=== PATIENT | female | born 1960 | race Caucasian/White ===

== ENCOUNTER 2023-12-01 06:38 | Inpatient (IN) | payer OTHER, SELFPAY ==
[2023-12-01] VITALS (9 sets, daily range): BP systolic 119–170; BP diastolic 67–105; BMI 35.6; BMI 35.5
--- NOTE | 2023-12-01 02:46 | ED.GENMED ---
History of Present Illness
General
Chief Complaint: Skin Problem
Source: patient, previous radiology exam (Right lower extremity ultrasound November 17, 2023 showing significant reflux right greater saphenous vein and accessory saphenous vein. No evidence of DVT.) and previous hospital records (Previous ED visit
September 23 with complaints of generalized weakness, fatigue, history of vaginal bleeding as well as bleeding of superficial varicosity right lower extremity. Given an IV dose of Venna fair for hemoglobin of 6.2.)
Exam Limitations: none
Time Seen by Provider: 12/01/23 02:23
Nursing documentation reviewed up to this point in time: agreed with
Travel History
Have you had any contact with someone who has COVID-19?: No
Do you have any symptoms of coronavirus? Fever > 100 degrees, chills, cough, shortness of breath, sore throat, loss of taste or smell, muscle aches, or headache?: No
History of Present Illness
History of Present Illness:
This is a 63-year-old woman who has history of left bundle branch block, moderate aortic stenosis, cardiomyopathy with EF approximately 40 to 45%, hypertension, hyperlipidemia. She also has history of chronic venous stasis bilateral lower
extremities right greater than left with onset of medial right lower leg venous stasis ulcerations over the past 6 months.
She does note history of acute varicosity bleeding of right lower extremity August 2023 and was seen in this ED September 23, 2023 due to complaints of lightheadedness, weakness with recent varicose vein bleeding and was found to have a hemoglobin
of 6.2. She was given an IV dose of Venofer during that ED visit. She returns October 02 with complaints of recurrent vaginal bleeding. Hemoglobin on that visit had improved to 6.8.
She has since followed up with hematology and has completed a course of IV Venofer and has been following with wound care with last visit approximately a month ago, she has a follow-up appointment scheduled for December 06.
She has also been following with the vein center of [place] and underwent ultrasound of her right lower leg November 17 which showed significant reflux of varicose veins but no evidence of DVT.
She does note several month history of a large superficial venous ulcer right medial lower leg just proximal to her ankle that has been moderately painful and very slow to heal but she presents tonight due to abrupt onset of redness, pain and
palpable heat of her anteromedial lower leg that has quickly worsened over the past several hours. She denies fever nor chills but has been taking ibuprofen 600 mg several times this evening due to the pain. Thus far no improvement.
No prior history of cellulitis nor focal infections of venous ulcers. She has no history of diabetes, no history of peripheral arterial disease.
Past History
Past History
ED Past Medical History: CHF (Hx SOB, followed by [facility]. Aortic stenosis), GERD, HTN, Hypercholesterolemia, Valvular disease (Moderate aortic stenosis), Hypothyroidism, Other (Bilateral lower extremity venous insufficiency with right lower
extremity venous ulcerations) and Other (Anemia requiring IV iron August/September 2023.)
ED Past Surgical History: Cholecystectomy and
Social History
Tobacco: Former smoker
Alcohol: Occasional
Drug: None
Personal:
Living: with family
Employment: Employed ([employer])
Family History
Family History: CAD and Cancer (sister w colon cancer)
Phy Exam
Physical Exam
Physical Exam:
GENERAL: 63-year-old obese female appears her stated age, awake and alert, pleasant, appears mildly uncomfortable related to pain. Easily communicative. Her is accompanying. She is afebrile.
EYE: anicteric
NECK: Supple, nontender, no meningismus, no significant adenopathy.
ENT: oral mucosa is moist. No rhinorrhea.
CARDIAC: Regular rate and rhythm. no murmur.
LUNGS: Clear breath sounds bilaterally, no acute respiratory distress, no wheezes/rales/rhonchi
ABDOMEN: Soft, nondistended, minimal tenderness epigastric region with deep palpation only, no rebound or guarding or rigidity, no palpable masses. Normoactive bowel sounds.
NEUROLOGICAL: Alert and oriented x3, no focal neuro deficits.
SKIN: Warm and dry, normal color. Right lower medial leg has a 7 cm x 3 cm irregularly shaped venous ulceration, subcutaneous in depth with local soft crust and scant yellowish discharge. Just below this ulcer is a 3 cm circular venous ulcer.
There is moderate erythema extending from this ulcer anteromedially about the lower leg with mild local soft tissue swelling, moderate palpable heat and moderate local tenderness to palpation. There is no lymphangitis. There is no erythema nor
soft tissue swelling to the foot. There is no joint effusion. Peripheral pulses are full and equal bilaterally.
MUSCULOSKELETAL: Venous stasis ulcer right lower extremity as above. Peripheral pulses are full and equal b/l.
PSYCH: Normal and appropriate interaction.
Course
Orders/Labs/Results
Orders:
Orders
12/01/23 02:45
0.9% Sodium Chloride 1000 ml [Nss] 1,000 ml IV 150 mls/hr
Morphine Sulfate 4 mg IV NOW STA
12/01/23 02:52
Complete Blood Count/With Diff Urgent
Comprehensive Metabolic Panel Urgent
Lactic Acid Urgent
Blood Culture Q30M
JADYN Source: Blood/Venous
Specimen Description:
12/01/23 02:56
Blood Culture Q30M
JADYN Source: Blood/Venous
Specimen Description:
Wound Culture [Wound/Abscess/Other Culture] Urgent
JADYN Source: Leg
Specimen Description: Right
Date Specimen was Collected: 12/01/23
Time Specimen was Collected: 02:54
Comment: venous stasis ulcer R medial lower leg
12/01/23 03:05
Pantoprazole [Protonix IV] 40 mg IV NOW STA
12/01/23 03:09
Collagenase [Santyl Ointment] See Dose Instructions TOPICAL NOW STA
12/01/23 03:11
CeFAZolin 2 GRAM [Ancef] 2 grams in 10 ml IV NOW
Abnormal Lab Results
12/01/23
02:52
RBC 4.09 L 10^6/uL
(4.20-5.40)
MCHC 32.9 L g/dL
(33.0-37.0)
RDW 17.1 H %
(11.5-14.5)
Potassium 5.3 H mmol/L
(3.5-5.1)
AST 40 H U/L
(14-36)
12/01/23 02:52
12/01/23 02:52
Vital Signs
Initial and Last Documented VS:
Initial Vital Signs
Temp Pulse Resp BP Pulse Ox
97.7 F 68 17 142/89 97
12/01/23 02:07 12/01/23 02:07 12/01/23 02:07 12/01/23 02:07 12/01/23 02:07
Last Documented Vital Signs
Temp Pulse Resp BP Pulse Ox
97.7 F 68 17 142/89 97
12/01/23 02:07 12/01/23 02:07 12/01/23 02:07 12/01/23 02:07 12/01/23 02:07
MDM/Problems Addressed
Differential Diagnosis Includes:
Patient has history of venous stasis ulcerations right lower extremity, presents with acute erythema, pain, swelling and palpable heat about her right lower leg extending from this ulcer quite concerning for acute cellulitis.
Currently afebrile but patient has been self-medicating with a fair amount of ibuprofen this evening. She does admit to some epigastric discomfort that I suspect is acute gastritis related to several doses of ibuprofen 600 mg this evening.
Venous stasis ulcerations have been present for the past 6 months, very slow to heal thus concern for an element of immunocompromise. There is no history of arterial insufficiency and no history of DVT/thromboembolism and underwent venous
Doppler/imaging most recently November 17.
She has history of symptomatic anemia due to bleeding of superficial varicose veins as well as postmenopausal bleeding requiring IV iron transfusions August and September. She has had no further bleeding since.
Will check labs including lactic acid, blood cultures, CBC, complete metabolic panel.
Will check wound culture. Patient reports no prior history of MRSA.
Will give IV morphine for pain, initiate IV fluids and will plan for IV antibiotics for treatment of acute cellulitis.
Due to acute onset and progression of erythema and pain over the past several hours patient is at risk for further progression, at risk for potential sepsis thus will require IV antibiotics and acute hospitalization.
Chronic conditions affecting care: HTN and Other (Venous stasis ulcerations right lower extremity, chronic venous stasis bilateral lower extremities.)
Acute Exacerbation and/or Progression of Chronic Illness: Other (Venous stasis ulcerations right lower extremity)
*Pulse Oximetry
Patient hypoxic: no
*Critical Care Note
Total Time (30-74mins, 75-104mins- exclusive of procedures): Not Applicable
Update Note
Update Note:
12/01/2023 0409 AM
Labs are reassuring with normal white blood cell count, chemistries show minimally elevated potassium of 5.3 but normal BUN and creatinine, normal lactic acid.
Patient is mildly more comfortable after IV morphine.
She has been started on IV Ancef and will admit to hospitalist service.
ED Attending Note
-
Portions of this chart may have been created with voice recognition software.� Occasional wrong word or��sound alike� substitutions may have occurred due to the inherent limitations of voice recognition software.
Discharge Plan
Departure
Patient Disposition: Admit
Date of Disposition: 12/01/23
Time of Disposition: 04:08
Admit to: Med/Surg
Admit to doctor: Jay Jay
Presentation/result/management discussed w/ accepting MD/DO: Hospitalist
Condition: Fair
Discharge Problem:
Venous stasis ulcer with varicose veins of right lower extremity, Cellulitis of leg without foot, right
Prescriptions:
No Action
levothyroxine 125 MCG tablet
150 mcg PO DAILY
acetaminophen [Tylenol Extra Strength] 500 MG tablet
500 mg PO Q4HPRN PRN (Reason: pain)
omeprazole 20 MG capsule,delayed release(DR/EC)
40 mg PO DAILY
aspirin [Mile Chewable Aspirin] 81 MG tablet,chewable
81 mg PO DAILY
ferrous sulfate [Iron (ferrous sulfate)] 325 mg (65 mg iron) tablet
325 mg PO DAILY Qty: 20 0RF
cyanocobalamin (vitamin B-12) [Vitamin B-12] 1,000 mcg Tablet
1,000 mcg PO DAILY
metoprolol tartrate 25 mg Tablet
25 mg PO HS
cholecalciferol (vitamin D3) [Vitamin D3] 25 mcg (1,000 unit) Tablet
25 mcg PO DAILY
Entresto 49-51 mg Tablet
1 tab PO BID
Linzess 72 mcg Capsule
145 mcg PO DAILY
spironolactone 25 mg Tablet
25 mg PO DAILY
Interventions
Interventions:
*Risk Screen - Suicide Last Done: 12/01/23 02:07
*General Assessment Last Done: 12/01/23 02:07
*Neglect/Abuse Screening Last Done: 12/01/23 02:07
ED- Fall Risk Assessment Last Done: 12/01/23 02:07
*ED COVID-19 Vaccine History Last Done: 12/01/23 02:07
ED-Skin Assessment Last Done: 12/01/23 03:49
[2023-12-01] MEDS: MORPHINE SULFATE 4 MG IV (02:54)
[2023-12-01] MEDS: NSS 1000 IV (02:55)
[2023-12-01] MEDS: PROTONIX IV 40 MG IV (03:09)
[2023-12-01] MEDS: SANTYL OINTMENT TOPICAL (03:10)
[2023-12-01] MEDS: SANTYL OINTMENT 1 APPLIC TOPICAL (03:27)
[2023-12-01] MEDS: ANCEF 10 IV ×3 (03:27→20:09)
[2023-12-01 03:34] LABS: % Basophils 1.1 % (0-2); % Eosinophils 5.6 % (0-6); % Immature Granulocytes 0.3 % (0-0.5); % Lymphocytes 22.5 % (20.5-51.1); % Monocytes 8.9 % (1.7-9.3); % Neutrophils 61.6 % (42.2-75.2); Absolute Basophils 0.1 10^3/uL (0-0.2); Absolute Eosinophils 0.4 10^3/uL (0-0.7); Absolute Lymphocytes 1.4 10^3/uL (1.2-3.4); Absolute Monocytes 0.6 10^3/uL (0.1-0.6); Absolute Neutrophils 3.9 10^3/uL (1.4-6.5); Hematocrit 38.3 % (37.0-47.0); Hemoglobin 12.6 g/dL (12.0-16.0); Mean Corp Hgb Conc. 32.9 g/dL (33.0-37.0); Mean Corpuscular Hgb 30.8 pg (27.0-31.0); Mean Corpuscular Volume 93.6 fL (81.0-99.0); Nucleated Red Blood Cells % 0 %; Platelet Count 240 10^3/uL (130-400); Red Blood Cell Count 4.09 10^6/uL (4.20-5.40); Red Cell Dist. Width 17.1 % (11.5-14.5); White Blood Cell Count 6.3 10^3/uL (4.8-10.8)
[2023-12-01 03:42] LABS: Lactic Acid 0.7 mmol/L (0.7-2.0)
[2023-12-01 04:00] LABS: ALT (SGPT) 19 U/L (0-35); AST (SGOT) 40 U/L (14-36); Albumin 3.8 g/dl (3.5-5.0); Alkaline Phosphatase 87 U/L (38-126); Blood Urea Nitrogen 13 mg/dl (7-17); Carbon Dioxide 25 mmol/L (22-30); Chloride 105 mmol/L (98-107); Glucose 97 mg/dl (70-99); Potassium 5.3 mmol/L (3.5-5.1); Sodium 137 mmol/L (135-145); Total Bilirubin 1.3 mg/dl (0.2-1.3); Total Protein 6.6 g/dl (6.3-8.2); eGFR > 60.00
--- NOTE | 2023-12-01 06:05 | HPS.HSE ---
Family Physician
-
Family Physician: Eriberto Ward
Chief Complaint
-
RLE Pain swelling and redness
History of Present Illness
Patient is a 63y F with PMH significant for hypothyroidism, aortic stenosis, obesity and venous ulcers who presents to ED complaining of pain, swelling, redness and increased warmth in the RLE. Patient reports development of venous ulcers near
the R ankle in August 2023. She has been evaluated / followed by Wound Care here at . Patient states that she was having no significant issues until bedtime this evening when she noted significant redness, swelling and significant increase in
warmth in the R lower leg. Patient presented to the ED for further evaluation and treatment. She denies any systemic complaints including fevers / chills, N/V/D, etc.
Medical History
Past Medical History
Past Medical History: Reports Other
Additional Past Medical History:
Venous Stasis / Ulcerations / Varicose Veins
Hypertension
Aortic Stenosis
Chronic HFrEF (35-40%)
LBBB
Obesity
Hypothyroidism
GERD / Juan's Esophagus
Past Surgical History: Reports Other
Additional Past Surgical History:
x 4
Cholecystectomy
Social History
Tobacco: Former Smoker (Quit smoking many years ago.)
Alcohol: Occasional
Drug: None
Family History
Family History: Other (Father: CAD, Lung Cancer Mother: Dementia Daughter: Crohn's disease)
Allergies / Home Medications
Allergies reflects when Allergies were last updated in [employer].
Home Medications with original date entered in [employer]
Allergy/Medication List:
Allergies
Allergy/AdvReac Type Severity Reaction Status Date / Time
No Known Allergies Allergy Verified 12/01/23 02:06
Home Medications
levothyroxine 125 mcg tablet 150 mcg PO DAILY 09/18/11
acetaminophen 500 mg tablet (Tylenol Extra Strength) 500 mg PO Q4HPRN PRN pain 02/21/18
aspirin 81 mg chewable tablet (Mile Chewable Low Dose Aspirin) 81 mg PO DAILY 12/21/17
omeprazole 20 mg capsule,delayed release 40 mg PO DAILY 12/21/17
ferrous sulfate 325 mg (65 mg iron) tablet (Iron (ferrous sulfate)) 325 mg PO DAILY #20 tabs 09/23/23
cholecalciferol (vitamin D3) 25 mcg (1,000 unit) tablet (Vitamin D3) 25 mcg PO DAILY 10/02/23
cyanocobalamin (vitamin B-12) 1,000 mcg tablet (Vitamin B-12) 1,000 mcg PO DAILY 10/02/23
linaclotide 72 mcg capsule (Linzess) 145 mcg PO DAILY 10/02/23
metoprolol tartrate 25 mg tablet 25 mg PO HS 10/02/23
sacubitril 49 mg-valsartan 51 mg tablet (Entresto) 1 tab PO BID 10/02/23
spironolactone 25 mg tablet 12.5 mg PO DAILY 10/10/23
Review of Systems
-
History Source: Patient
A 12 point ROS was completed and negative except as noted: Yes
Constitutional: Denies Fever or Chills
EENT: Denies Sore Throat
Respiratory: Denies Cough or Trouble Breathing
Cardiac: Denies Chest Pain or Palpitations
Abdomen/GI: Denies Abdominal Pain, Nausea, Vomiting or Diarrhea
: Denies Dysuria or Frequency
Musculoskeletal: Reports Joint Pain, Muscle Pain and Edema
Skin: Reports Other (Redness / warmth)
Psych: Denies Depression or Anxiety
Physical Exam
Vital Signs
Vital Signs
Temp Pulse Resp BP Pulse Ox
97.7 F 68 17 142/89 97
12/01/23 02:07 12/01/23 02:07 12/01/23 02:07 12/01/23 02:07 12/01/23 02:07
Physical Exam
General: Other (63y F in no acute distress.)
HEENT: Moist mucous membranes, PERRLA and Other (Thick neck.)
Respiratory: Clear; No Wheezes, Rales or Rhonchi
Cardiac: S1/S2, Regular Rhythm and Murmur (II/ IOANA)
GI: Soft, Non Tender, Non Distended, Normal Bowel Sounds and Other (Obese)
Musculoskeletal: No Clubbing and No Cyanosis
Skin: Other (RLE with erythema extending just distal to the knee. Ulceration over the medial aspect of the ankle with surrounding erythema, induration and some serous drainage. )
Neuro: AO x 3
Laboratory Results
-
12/01/23 02:52
12/01/23 02:52
Laboratory Results
Lactic Acid 0.7 mmol/L (0.7-2.0) 12/01/23 02:52
Total Bilirubin 1.3 mg/dl (0.2-1.3) 12/01/23 02:52
AST 40 U/L (14-36) H 12/01/23 02:52
ALT 19 U/L (0-35) 12/01/23 02:52
Alkaline Phosphatase 87 U/L (38-126) 12/01/23 02:52
Impression/Plan
-
A/P: Patient is a 63y F with PMH significant for venous stasis / venous ulcers, CHF and HTN who presents to ED complaining of RLE pain, swelling, redness and warmth.
RLE Cellulitis
- Admit for further evaluation and treatment.
- Cellulitis seems most likely given erythema, increased warmth and presence of ulcerations / skin breakdown.
- IV abx with Ancef and follow for clinical improvement.
- Follow-up culture data and adjust regimen if needed.
- Supportive care including pain control.
- Given risk factors and sudden onset of symptoms, shahida check Doppler US to rule out DVT (last checked / negative in 08/2023).
Venous Stasis Varicose Veins
Venous Ulcers RLE
- Wound Care evaluation for local care recommendations.
- Follow-up with Wound Care clinic as an outpatient following discharge.
Chronic HFrEF
Aortic Stenosis
- Stable. No significant volume overload appreciated on exam.
- Hold Entresto and spironolactone acutely given hyperkalemia.
- Restart medications when appropriate.
- Follow I/Os, daily weights, etc.
Benign Hypertension
- Stable. Continue outpatient med regimen with holding parameters.
GERD / Juan's Esophagus
- Stable. Continue daily PPI.
- Patient also self-reports that she has Crohn's disease. I see no record of this in her documentation.
- Not on any Crohn's medications. Prior colonoscopy biopsy results have been unremarkable.
- She takes Linzess for constipation predominant IBS which seems incongruous.
- Follow for any new GI symptoms / complaints.
Hypothyroidism
- Stable. Continue current t4 supplementation.
Obesity due to excess calories
- Affects all aspects of care - including varicose veins / venous stasis.
- Encourage healthy diet and increased exercise with goal of weight loss.
DVT Propphylaxis: Lovenox
Code Status: Full
--- NOTE | 2023-12-01 08:31 | W.PN.HOSP.TC ---
Today's Communication/Plan
-
IV antibiotics, PT eval. Wound care eval
Assessment / Plan
Assessment / Plan
Physical exam:
General: Well Developed, Well Nourished and No Apparent Distress
HEENT: Normocephalic, Atraumatic and Moist Mucous Membranes
Respiratory: Clear to Auscultation; Negative Wheezes, Rales or Rhonchi
Cardiac: Regular Rhythm and S1/S2
GI: Soft, Nontender and Nondistended
Musculoskeletal: RLE with erythema extending just distal to the knee.� Ulceration over the medial aspect of the ankle with surrounding erythema, induration and some serous drainage.� No Clubbing, No Cyanosis
Neuro: Awake, Alert and Oriented
Psych: Calm
A/P:
RLE Cellulitis
�- Admit for further evaluation and treatment.
�- Cellulitis seems most likely given erythema, increased warmth and presence of ulcerations / skin breakdown.
�- IV abx with Ancef and follow for clinical improvement.
�- Follow-up culture data and adjust regimen if needed.
�- Supportive care including pain control.
�- Checked Doppler US negative for DVT
-PT eval today
Venous Stasis Varicose Veins
Venous Ulcers RLE
�- Wound Care evaluation for local care recommendations. Start compression stockings today. Elevation of right lower extremity
�- Follow-up with Wound Care clinic as an outpatient following discharge.
Chronic HFrEF
Aortic Stenosis. Hyperkalemia
�- Stable.� No significant volume overload appreciated on exam.
�- Hold Entresto and spironolactone acutely given hyperkalemia. Repeat again tomorrow and if persistent will use Lokelma but hold off for now.
�- Restart medications when appropriate.
�- Follow I/Os, daily weights, etc.
Benign Hypertension
�- Stable.� Continue outpatient med regimen with holding parameters.
GERD / Juan's Esophagus
�- Stable.� Continue daily PPI.
�- Patient also self-reports that she has Crohn's disease.� I see no record of this in her documentation.
�- Not on any Crohn's medications.� Prior colonoscopy biopsy results have been unremarkable.
�- She takes Linzess for constipation predominant IBS which seems incongruous.
�- Follow for any new GI symptoms / complaints.
Hypothyroidism
�- Stable.� Continue current t4 supplementation.
Obesity due to excess calories
�- Affects all aspects of care - including varicose veins / venous stasis.
�- Encourage healthy diet and increased exercise with goal of weight loss.
DVT Propphylaxis:� Lovenox
Code Status:� Full
Anticipated Discharge: > 48 hours
Subjective/Interval History
-
Date of Service: December 01, 2023
Patient with erythema in right lower extremity and medial ulcers on the right leg, no chest pain or shortness of breath. Afebrile
Objective Data
-
Labs:
Laboratory Results
12/01/23
02:52
WBC 6.3
Hgb 12.6
Hct 38.3
Plt Count 240
Sodium 137
Potassium 5.3 H
Chloride 105
Carbon Dioxide 25
BUN 13
Creatinine 0.6
Glucose 97
Calcium 9.0
Total Bilirubin 1.3
AST 40 H
ALT 19
Alkaline Phosphatase 87
Vital Signs:
Vital Signs
Temp Pulse Resp BP Pulse Ox
97.7 F 68 17 147/86 97
12/01/23 02:07 12/01/23 02:07 12/01/23 02:07 12/01/23 06:00 12/01/23 02:07
Review of Systems
-
All other systems: Reviewed and negative
[2023-12-01] MEDS: LOW STRENGTH ASPIRIN PO (09:19)
[2023-12-01] MEDS: LINZESS 145 MCG PO (09:23)
[2023-12-01] MEDS: FEOSOL 325 MG PO (09:23)
[2023-12-01] MEDS: DILAUDID 0.5 MG IV ×2 (09:26→16:01)
--- NOTE | 2023-12-01 11:08 | WOUNDNOTE ---
[facility] RN note: Patient admitted with RLE wound and cellulitis
See H&P for complete history.
PMH: A-fib, CHF, HTN, Juan's esophagus
Wound Location and type/assessment: Patient admitted with: RLE venous wound. Patient last seen at [facility] on 10/25. Patient now with erythema and +2 edema of right LE. Wound is tender, dry, with areas of slough. Patient can detect odor after
washing. She has been cleaning and applying aquaphor to wound daily. Per chart review and patient report she did not want wound to be debrided due to pain. 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
pastry sous chef.
Appetite: Good
Pressure redistribution devices in place: Versa Care Air, turns in bed and ambulates. Heels and sacrum intact.
Plan: Wound cleaned with Vashe soaked gauze for 5 minutes and Xeroform and silicone foam applied. Tubi-second worker to RLE has been ordered and is in room. Patient will allow staff to apply tubi second worker when leg is less tender. Patient has an appointment at
[facility] on 12/06. Will confirm orders with hospitalist and update nurse. Updated care plan and will follow as needed.
Recommend follow up at wound care center upon discharge.
[2023-12-01] MEDS: MIRALAX 17 GRAMS PO (12:38)
[2023-12-01] MEDS: TYLENOL 650 MG PO (12:43)
--- NOTE | 2023-12-01 15:45 | CM ---
Reviewed chart, met with patient to obtain information for assessment. Patient stated that she lives in a two story town home with two steps to enter.
She described herself as independent with all her ADLs, personal care, dressing, bathing and ambulates without use of an assistive device.
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
She denied any DME in her home. She has never been to a SNF or had VN. She is going to outpatient wound care.
Patient has a prescription plan and uses the [facility] pharmacy for all of his medications.
She has a PCP and sees Dr. Hodges.
Plan: Case management will continue to follow and assist with discharge planning. Home with spouse when stable.
--- NOTE | 2023-12-01 16:25 | PTOTSP ---
Pt is functionally independent. PT will sign off.
[2023-12-01] MEDS: LOVENOX 40 MG SC (19:32)
[2023-12-01] MEDS: LOPRESSOR 25 MG PO (21:29)
[2023-12-02] MEDS: DILAUDID 0.5 MG IV (00:48)
[2023-12-02] MEDS: ANCEF 10 IV ×3 (03:55→19:54)
[2023-12-02 06:54] LABS: Hematocrit 38.3 % (37.0-47.0); Hemoglobin 12.1 g/dL (12.0-16.0); Mean Corp Hgb Conc. 31.6 g/dL (33.0-37.0); Mean Corpuscular Hgb 31.3 pg (27.0-31.0); Mean Corpuscular Volume 99.2 fL (81.0-99.0); Mean Platelet Volume 9.9 fL (7.4-10.4); Platelet Count 183 10^3/uL (130-400); Red Blood Cell Count 3.86 10^6/uL (4.20-5.40); Red Cell Dist. Width 17.1 % (11.5-14.5); White Blood Cell Count 4.8 10^3/uL (4.8-10.8)
[2023-12-02 07:19] LABS: Blood Urea Nitrogen 17 mg/dl (7-17); Calcium 8.8 mg/dl (8.4-10.2); Carbon Dioxide 26 mmol/L (22-30); Chloride 105 mmol/L (98-107); Estimated Creatinine Clearance 97 ml/min; Glucose 96 mg/dl (70-99); Sodium 139 mmol/L (135-145); eGFR > 60.00
[2023-12-02 07:30] VITALS: BP 166/95
[2023-12-02] MEDS: LINZESS 145 MCG PO (08:21)
[2023-12-02] MEDS: SYNTHROID 125 MCG PO (08:21)
--- NOTE | 2023-12-02 08:56 | W.PN.HOSP.TC ---
Today's Communication/Plan
-
Continue IV antibiotics. Resume antihypertensives.
Assessment / Plan
Assessment / Plan
Physical exam:
General: Well Developed, Well Nourished and No Apparent Distress
HEENT: Normocephalic, Atraumatic and Moist Mucous Membranes
Respiratory: Clear to Auscultation; Negative Wheezes, Rales or Rhonchi
Cardiac: Regular Rhythm and S1/S2
GI: Soft, Nontender and Nondistended
Musculoskeletal: RLE with erythema extending just distal to the knee.� Ulceration over the medial aspect of the ankle with surrounding erythema, induration and some serous drainage.� No Clubbing, No Cyanosis
Neuro: Awake, Alert and Oriented
Psych: Calm
A/P:
RLE Cellulitis
�- Admit for further evaluation and treatment.
�- Cellulitis seems most likely given erythema, increased warmth and presence of ulcerations / skin breakdown.
�- IV abx with Ancef and follow for clinical improvement.
�- Follow-up culture data and adjust regimen if needed.
�- Supportive care including pain control.
�- Checked Doppler US negative for DVT
-PT eval today
Venous Stasis Varicose Veins
Venous Ulcers RLE
�- Wound Care evaluation for local care recommendations. Start compression stockings today. Elevation of right lower extremity
�- Follow-up with Wound Care clinic as an outpatient following discharge.
Chronic HFrEF
Aortic Stenosis. Hyperkalemia, resolved.
�- Stable.� No significant volume overload appreciated on exam.
�-Resume Entresto and spironolactone given potassium normalized her blood pressure starts to go up.
�- Follow I/Os, daily weights, etc.
Benign Hypertension
�- Continue outpatient med regimen with holding parameters.
�-Resume Entresto and spironolactone given potassium normalized her blood pressure starts to go up.
GERD / Juan's Esophagus
�- Stable.� Continue daily PPI.
�- Patient also self-reports that she has Crohn's disease.� I see no record of this in her documentation.
�- Not on any Crohn's medications.� Prior colonoscopy biopsy results have been unremarkable.
�- She takes Linzess for constipation predominant IBS which seems incongruous.
�- Follow for any new GI symptoms / complaints.
Hypothyroidism
�- Stable.� Continue current t4 supplementation.
Obesity due to excess calories
�- Affects all aspects of care - including varicose veins / venous stasis.
�- Encourage healthy diet and increased exercise with goal of weight loss.
DVT Propphylaxis:� Lovenox
Code Status:� Full
Anticipated Discharge: 24 - 48 hours
Subjective/Interval History
-
Date of Service: December 02, 2023
Erythema is better. Blood pressure started to go up
Objective Data
-
Labs:
Laboratory Results
12/02/23
06:22
WBC 4.8
Hgb 12.1
Hct 38.3
Plt Count 183 D
Sodium 139
Potassium 4.0
Chloride 105
Carbon Dioxide 26
BUN 17
Creatinine 0.7
Glucose 96
Calcium 8.8
Vital Signs:
Vital Signs
Temp Pulse Resp BP Pulse Ox
97.6 F 75 18 166/95 96
12/02/23 07:30 12/02/23 07:30 12/02/23 07:30 12/02/23 07:30 12/02/23 07:30
I&O
12/01/23 12/02/23 12/03/23
06:59 06:59 06:59
Intake Total 1380 / 1380
Balance 1380 / 1380
[2023-12-02] MEDS: PROTONIX 40 MG PO (09:44)
[2023-12-02] MEDS: ALDACTONE 12.5 MG PO (09:44)
[2023-12-02] MEDS: LOW STRENGTH ASPIRIN 81 MG PO (09:44)
[2023-12-02] MEDS: MIRALAX PO ×2 (09:44→09:49)
[2023-12-02] MEDS: ENTRESTO 49 MG/51 MG 1 TAB PO ×2 (09:45→19:54)
[2023-12-02 10:00] VITALS: BMI 35.6
[2023-12-02 15:30] VITALS: BP 154/91
[2023-12-02] MEDS: LOVENOX 40 MG SC (16:58)
[2023-12-02] MEDS: TYLENOL 650 MG PO (17:58)
[2023-12-02] MEDS: TOPROL XL 25 MG PO (22:02)
[2023-12-02 23:31] VITALS: BP 144/70
[2023-12-03] MEDS: TYLENOL 650 MG PO ×3 (02:33→17:27)
[2023-12-03] MEDS: ANCEF 10 IV ×3 (04:00→20:01)
[2023-12-03] MEDS: SYNTHROID 125 MCG PO (06:28)
[2023-12-03 07:25] VITALS: BP 156/94
--- NOTE | 2023-12-03 07:47 | W.PN.HOSP.TC ---
Today's Communication/Plan
-
Continue IV antibiotics. Resume all her cardiac medications.
Assessment / Plan
Assessment / Plan
Physical exam:
General: Well Developed, Well Nourished and No Apparent Distress
HEENT: Normocephalic, Atraumatic and Moist Mucous Membranes
Respiratory: Clear to Auscultation; Negative Wheezes, Rales or Rhonchi
Cardiac: Regular Rhythm and S1/S2
GI: Soft, Nontender and Nondistended
Musculoskeletal: RLE with erythema extending just distal to the knee, improving.� Ulceration over the medial aspect of the ankle with surrounding erythema, induration and some serous drainage.� No Clubbing, No Cyanosis
Neuro: Awake, Alert and Oriented
Psych: Calm
A/P:
RLE Cellulitis:
�-Continue IV antibiotics, IV cefazolin. She still needs 24 to 48 hours of IV antibiotics.
-Cultures negative
-Continue elevation of lower extremity
-Continue compression stockings
-Doppler negative for DVT
-PT eval and they signed off
Venous Stasis Varicose Veins/ Venous Ulcers RLE:
-Appreciated wound care consult
Chronic HFrEF (chronic systolic congestive heart failure)/ Aortic Stenosis:
�- Stable.�
-After discussion with patient and , they tell me that she is supposed to be taking furosemide 40 mg daily so we will restart today 2/3. He will verify the medications at home to confirm.
�-Continue Entresto and spironolactone
�- Follow I/Os, daily weights.
-Will check renal function, electrolytes including potassium, magnesium, phosphorus. She is very concerned about phosphorus so we will check in a.m. but also she is concerned about renal function but creatinine 0.7 with a creatinine clearance of
more than 60.
Hyperkalemia:
-Resolved.
-Back on spironolactone and Entresto, although initial presentation probably mild dehydration rather than medications induced.
Primary hypertension:
�- Continue Toprol-XL 25 mg daily, spironolactone 12.5 mg p.o. daily, Entresto 49/51 mg twice a day, and furosemide 40 mg p.o. daily.
-Monitor blood pressure and adjust medications accordingly
GERD / Juan's Esophagus:
�- Stable.� Continue daily PPI.
�- Patient also self-reports that she has Crohn's disease.� I see no record of this in her documentation.
�- Not on any Crohn's medications.� Prior colonoscopy biopsy results have been unremarkable.
�- She takes Linzess for constipation predominant IBS which seems incongruous.
�- Follow for any new GI symptoms / complaints.
Hypothyroidism:
�- Stable.� Continue current t4 supplementation.
Obesity due to excess calories:
�- Affects all aspects of care - including varicose veins / venous stasis.
�- Encourage healthy diet and increased exercise with goal of weight loss.
DVT Propphylaxis:�
-Lovenox
Code Status:�
-Full
Anticipated Discharge: 24 - 48 hours
Subjective/Interval History
-
Date of Service: December 03, 2023
Patient erythema improving as well as swelling, no fevers nausea vomiting or diarrhea. No chest pain or shortness of breath.
Objective Data
-
Labs:
Laboratory Results
12/03/23
06:13
WBC Pending
Hgb Pending
Hct Pending
Plt Count Pending
Sodium Pending
Potassium Pending
Chloride Pending
Carbon Dioxide Pending
BUN Pending
Creatinine Pending
Glucose Pending
Calcium Pending
Vital Signs:
Vital Signs
Temp Pulse Resp BP Pulse Ox
97.9 F 67 20 144/70 93
12/02/23 23:31 12/02/23 23:31 12/02/23 23:31 12/02/23 23:31 12/02/23 23:31
I&O
12/02/23 12/03/23 12/04/23
06:59 06:59 06:59
Intake Total 1380 / 1380 960 / 960
Balance 1380 / 1380 960 / 960
Review of Systems
-
All other systems: Reviewed and negative
[2023-12-03 08:19] VITALS: BMI 35.1
[2023-12-03 08:23] LABS: % Basophils 0.8 % (0-2); % Eosinophils 3.8 % (0-6); % Immature Granulocytes 0.4 % (0-0.5); % Lymphocytes 22.6 % (20.5-51.1); % Monocytes 8.4 % (1.7-9.3); Absolute Eosinophils 0.2 10^3/uL (0-0.7); Absolute Lymphocytes 1.2 10^3/uL (1.2-3.4); Absolute Monocytes 0.4 10^3/uL (0.1-0.6); Absolute Neutrophils 3.4 10^3/uL (1.4-6.5); Hematocrit 39.4 % (37.0-47.0); Hemoglobin 12.7 g/dL (12.0-16.0); Mean Corp Hgb Conc. 32.2 g/dL (33.0-37.0); Mean Corpuscular Hgb 31.1 pg (27.0-31.0); Mean Corpuscular Volume 96.3 fL (81.0-99.0); Mean Platelet Volume 10.2 fL (7.4-10.4); Nucleated Red Blood Cells % 0 %; Platelet Count 216 10^3/uL (130-400); Red Blood Cell Count 4.09 10^6/uL (4.20-5.40); Red Cell Dist. Width 16.9 % (11.5-14.5); White Blood Cell Count 5.2 10^3/uL (4.8-10.8)
[2023-12-03 09:08] LABS: Blood Urea Nitrogen 16 mg/dl (7-17); Calcium 8.9 mg/dl (8.4-10.2); Carbon Dioxide 28 mmol/L (22-30); Chloride 103 mmol/L (98-107); Estimated Creatinine Clearance 97 ml/min; Glucose 93 mg/dl (70-99); Potassium 3.9 mmol/L (3.5-5.1); Sodium 138 mmol/L (135-145); eGFR > 60.00
[2023-12-03] MEDS: ALDACTONE 12.5 MG PO (09:55)
[2023-12-03] MEDS: ENTRESTO 49 MG/51 MG 1 TAB PO ×2 (09:55→20:01)
[2023-12-03] MEDS: LOW STRENGTH ASPIRIN 81 MG PO (09:55)
[2023-12-03] MEDS: MIRALAX 17 GRAMS PO (09:56)
[2023-12-03] MEDS: PROTONIX 40 MG PO ×2 (09:56)
[2023-12-03] MEDS: LINZESS 145 MCG PO (10:04)
[2023-12-03] MEDS: LASIX 40 MG PO (11:12)
--- NOTE | 2023-12-03 13:09 | PTCARENOTE ---
PT with many questions about her medications, potassium, venous ulcer and wound care. Pt received education about entresto, spironolactone, lasix, daily labs. PT Verbalized an understanding. Room moved by charge nurse. Pt is not on precautions
at the time of decision making. Wound cultures just appeared with pseudomonas and staph. Pt on ancef. will await final cultures. PT ambulating in hallways without any difficulty
[2023-12-03 15:00] VITALS: BP 144/83
[2023-12-03] MEDS: LOVENOX 40 MG SC (17:22)
[2023-12-03] MEDS: FLUSH (NSS) 1 FLUSH IV (20:14)
[2023-12-03] MEDS: MOTRIN 400 MG PO (20:14)
[2023-12-03] MEDS: TOPROL XL 25 MG PO (21:30)
[2023-12-03 23:40] VITALS: BP 130/72
[2023-12-04] MEDS: ANCEF 10 IV ×3 (04:51→20:50)
[2023-12-04 06:00] VITALS: BMI 35.3
[2023-12-04 07:00] VITALS: BP 119/66
[2023-12-04] MEDS: SYNTHROID 125 MCG PO (07:09)
[2023-12-04 08:04] LABS: Blood Urea Nitrogen 21 mg/dl (7-17); Calcium 9.1 mg/dl (8.4-10.2); Carbon Dioxide 28 mmol/L (22-30); Chloride 102 mmol/L (98-107); Estimated Creatinine Clearance 97 ml/min; Glucose 98 mg/dl (70-99); Sodium 137 mmol/L (135-145); eGFR > 60.00
[2023-12-04] MEDS: MIRALAX PO (08:21)
[2023-12-04] MEDS: LINZESS 145 MCG PO (08:21)
[2023-12-04] MEDS: ALDACTONE 12.5 MG PO (08:22)
[2023-12-04] MEDS: PROTONIX 40 MG PO (08:22)
[2023-12-04] MEDS: ENTRESTO 49 MG/51 MG 1 TAB PO ×2 (08:22→21:07)
[2023-12-04] MEDS: LASIX 40 MG PO (08:22)
[2023-12-04] MEDS: LOW STRENGTH ASPIRIN 81 MG PO (08:22)
[2023-12-04] MEDS: TYLENOL 650 MG PO ×2 (08:25→16:57)
--- NOTE | 2023-12-04 08:26 | W.PN.HOSP.TC ---
Today's Communication/Plan
-
Continue antibiotics. Discharge planning in progress.
Assessment / Plan
Assessment / Plan
Physical exam:
General: Well Developed, Well Nourished and No Apparent Distress
HEENT: Normocephalic, Atraumatic and Moist Mucous Membranes
Respiratory: Clear to Auscultation; Negative Wheezes, Rales or Rhonchi
Cardiac: Regular Rhythm and S1/S2
GI: Soft, Nontender and Nondistended
Musculoskeletal: RLE with erythema extending just distal to the knee, improving.� Ulceration over the medial aspect of the ankle with surrounding erythema, induration and some serous drainage.� No Clubbing, No Cyanosis
Neuro: Awake, Alert and Oriented
Psych: Calm
A/P:
RLE Cellulitis:
�-Continue IV antibiotics, IV cefazolin. She still needs 24 hours of IV antibiotics and will switch to oral antibiotics tomorrow.
-Cultures negative
-Continue elevation of lower extremity
-Continue compression stockings
-Doppler negative for DVT
-PT eval and they signed off
Venous Stasis Varicose Veins/ Venous Ulcers RLE:
-Appreciated wound care consult
Chronic HFrEF (chronic systolic congestive heart failure)/ Aortic Stenosis:
�- Stable.�
-After discussion with patient and , they tell me that she is supposed to be taking furosemide 40 mg daily so we will restart today 12/03. He will verify the medications at home to confirm.
�-Continue Entresto and spironolactone
�- Follow I/Os, daily weights.
-Will check renal function, electrolytes including potassium, magnesium, phosphorus. She is very concerned about phosphorus so we will check in a.m. but also she is concerned about renal function but creatinine 0.7 with a creatinine clearance of
more than 60. I checked her magnesium, calcium, phosphorus, renal function again today on 12/04 and they are all unremarkable even taking her diuretics.
Hyperkalemia:
-Resolved.
-Back on spironolactone and Entresto, although initial presentation probably mild dehydration rather than medications induced.
Primary hypertension:
�- Continue Toprol-XL 25 mg daily, spironolactone 12.5 mg p.o. daily, Entresto 49/51 mg twice a day, and furosemide 40 mg p.o. daily.
-Monitor blood pressure and adjust medications accordingly
GERD / Juan's Esophagus:
�- Stable.� Continue daily PPI.
�- Patient also self-reports that she has Crohn's disease.� I see no record of this in her documentation.
�- Not on any Crohn's medications.� Prior colonoscopy biopsy results have been unremarkable.
�- She takes Linzess for constipation predominant IBS which seems incongruous.
�- Follow for any new GI symptoms / complaints.
Hypothyroidism:
�- Stable.� Continue current t4 supplementation.
Obesity due to excess calories:
�- Affects all aspects of care - including varicose veins / venous stasis.
�- Encourage healthy diet and increased exercise with goal of weight loss.
DVT Propphylaxis:�
-Lovenox
Code Status:�
-Full
Anticipated Discharge: Within 24 hours
Subjective/Interval History
-
Date of Service: December 04, 2023
Patient erythema and swelling improving. Afebrile. No diarrhea
Objective Data
-
Labs:
Laboratory Results
12/04/23
06:39
Sodium 137
Potassium 4.0
Chloride 102
Carbon Dioxide 28
BUN 21 H
Creatinine 0.7
Glucose 98
Calcium 9.1
Vital Signs:
Vital Signs
Temp Pulse Resp BP Pulse Ox
97.8 F 63 18 119/66 96
12/04/23 07:00 12/04/23 07:00 12/04/23 07:00 12/04/23 07:00 12/04/23 07:00
I&O
12/03/23 12/04/23 12/05/23
06:59 06:59 06:59
Intake Total 960 / 960 1849
Balance 960 / 960 1849
Review of Systems
-
All other systems: Reviewed and negative
[2023-12-04 15:00] VITALS: BP 130/77
[2023-12-04] MEDS: LOVENOX 40 MG SC (16:58)
[2023-12-04] MEDS: MOTRIN 400 MG PO (20:50)
[2023-12-04] MEDS: TOPROL XL 25 MG PO (21:08)
[2023-12-04 23:38] VITALS: BP 124/63
[2023-12-05 05:59] VITALS: BMI 35.4
[2023-12-05] MEDS: SYNTHROID 125 MCG PO (06:04)
[2023-12-05] MEDS: LINZESS 145 MCG PO (06:04)
[2023-12-05 07:00] VITALS: BP 123/71
[2023-12-05 07:10] LABS: Blood Urea Nitrogen 21 mg/dl (7-17); Carbon Dioxide 33 mmol/L (22-30); Chloride 103 mmol/L (98-107); Estimated Creatinine Clearance 85 ml/min; Glucose 89 mg/dl (70-99); Potassium 4.2 mmol/L (3.5-5.1); Sodium 136 mmol/L (135-145); eGFR > 60.00
--- NOTE | 2023-12-05 07:25 | W.PN.HOSP.TC ---
Today's Communication/Plan
-
Continue current management. Discharge planning today
Assessment / Plan
Assessment / Plan
Physical exam:
General: Well Developed, Well Nourished and No Apparent Distress
HEENT: Normocephalic, Atraumatic and Moist Mucous Membranes
Respiratory: Clear to Auscultation; Negative Wheezes, Rales or Rhonchi
Cardiac: Regular Rhythm and S1/S2
GI: Soft, Nontender and Nondistended
Musculoskeletal: RLE with erythema extending just distal to the knee, improving.� Ulceration over the medial aspect of the ankle with surrounding erythema, induration and some serous drainage.� No Clubbing, No Cyanosis
Neuro: Awake, Alert and Oriented
Psych: Calm
A/P:
RLE Cellulitis:
�-Continue IV antibiotics, IV cefazolin. Changed to oral antibiotics today
-Cultures negative
-Continue elevation of lower extremity
-Continue compression stockings
-Doppler negative for DVT
-PT eval and they signed off
Venous Stasis Varicose Veins/ Venous Ulcers RLE:
-Appreciated wound care consult
Chronic HFrEF (chronic systolic congestive heart failure)/ Aortic Stenosis:
�- Stable.�
-After discussion with patient and , they tell me that she is supposed to be taking furosemide 40 mg daily so we will restart today 12/03. He will verify the medications at home to confirm.
�-Continue Entresto and spironolactone
�- Follow I/Os, daily weights.
-Will check renal function, electrolytes including potassium, magnesium, phosphorus. She is very concerned about phosphorus so we will check in a.m. but also she is concerned about renal function but creatinine 0.7 with a creatinine clearance of
more than 60. I checked her magnesium, calcium, phosphorus, renal function again today on 12/04 and they are all unremarkable even taking her diuretics.
Hyperkalemia:
-Resolved.
-Back on spironolactone and Entresto, although initial presentation probably mild dehydration rather than medications induced.
Primary hypertension:
�- Continue Toprol-XL 25 mg daily, spironolactone 12.5 mg p.o. daily, Entresto 49/51 mg twice a day, and furosemide 40 mg p.o. daily.
-Monitor blood pressure and adjust medications accordingly
GERD / Juan's Esophagus:
�- Stable.� Continue daily PPI.
�- Patient also self-reports that she has Crohn's disease.� I see no record of this in her documentation.
�- Not on any Crohn's medications.� Prior colonoscopy biopsy results have been unremarkable.
�- She takes Linzess for constipation predominant IBS which seems incongruous.
�- Follow for any new GI symptoms / complaints.
Hypothyroidism:
�- Stable.� Continue current t4 supplementation.
Obesity due to excess calories:
�- Affects all aspects of care - including varicose veins / venous stasis.
�- Encourage healthy diet and increased exercise with goal of weight loss.
DVT Propphylaxis:�
-Lovenox
Code Status:�
-Full
Anticipated Discharge: Today
Subjective/Interval History
-
Date of Service: December 05, 2023
Patient denies any chest pain or shortness of breath. No nausea vomiting or diarrhea. Afebrile
Objective Data
-
Labs:
Laboratory Results
12/05/23
06:15
Sodium 136
Potassium 4.2
Chloride 103
Carbon Dioxide 33 H
BUN 21 H
Creatinine 0.8
Glucose 89
Calcium 9.0
Vital Signs:
Vital Signs
Temp Pulse Resp BP Pulse Ox
97.6 F 67 18 124/63 93
12/04/23 23:38 12/04/23 23:38 12/04/23 23:38 12/04/23 23:38 12/04/23 23:38
I&O
12/04/23 12/05/23 12/06/23
06:59 06:59 06:59
Intake Total 1849 960 / 960
Balance 1849 960 / 960
[2023-12-05] MEDS: ALDACTONE 12.5 MG PO (08:05)
[2023-12-05] MEDS: LOW STRENGTH ASPIRIN 81 MG PO (08:06)
[2023-12-05] MEDS: PROTONIX 40 MG PO (08:07)
[2023-12-05] MEDS: LASIX 40 MG PO (08:07)
[2023-12-05] MEDS: KEFLEX 500 MG PO (08:07)
[2023-12-05] MEDS: MIRALAX PO (08:10)
[2023-12-05] MEDS: ENTRESTO 49 MG/51 MG 1 TAB PO (08:38)
--- NOTE | 2023-12-05 09:38 | CM ---
Reviewed chart, Per PT and nursing staff, patient independent and ambulating around room with no assistance needed. Patient continues to require IV antibiotics. She feels she will be able to return home when medically cleared. Will watch for any ABX
needs.
Plan: Case management will continue to follow and assist with discharge planning. Tentative plan remains for home when stable.
--- NOTE | 2023-12-05 10:09 | W.DCSUMMARY ---
Discharge Summary
Discharge Data
Date of Admission: 12/01/23
Date of Discharge: 12/05/23
-
Pending Results: No
Hospital Course
Patient is 63 years old male with history of venous stasis and ulcerations, hypertension, aortic stenosis, chronic systolic CHF, obesity, hypothyroidism, Juan's esophagus, GERD, presented to the hospital with swelling redness and increased warmth
in the right lower extremity consistent with right lower extremity cellulitis. She was started on IV antibiotics and wound care consulted and evaluated the patient. Her cellulitis improved with IV antibiotic and local wound care. Her WBC has
remained normal, she has remained afebrile, and she has clinically improved substantially. She is going to be discharged in stable condition today.
Discharge duration: 35 minutes
Discharge Plan
-
Patient Disposition: Home (Routine Discharge)
Discharge Diagnosis/Procedures: Right lower extremity cellulitis. Right lower extremity ulcer. Chronic systolic congestive heart failure. Aortic stenosis. Hypertension. Gastroesophageal reflux disease. Hypothyroidism. Obesity.
Diet: Low Cholesterol, Low Sodium and Restrict fluids to 48 oz
Activity: As tolerated
Driving Restrictions: As prior to admission
Blood Work: Please PCP to order CBC, BMP within 1 week
Specialty Instructions: Weigh Daily- Call MD for wt gain/loss 3 lbs overnight/5 lbs in 1 week
Activity Restrictions/Additional Instructions:
Wound Care Instructions Right LE- Clean with Vashe soaked gauze for 5 minutes. Cover with Xeroform gauze and silicone border foam. Change Q 48 hours and as needed if loose or soiled.
Continue wearing compression and elevating legs as directed.
Follow up at wound care center call for an appointment.
Referrals:
Eriberto Ward MD [Family Provider] - in less than 1 week
Prescriptions:
New
furosemide 40 mg Tablet
40 mg PO DAILY Qty: 30 0RF
cephalexin 500 mg Capsule
500 mg PO QID 5 Days Qty: 20 0RF
Continued
levothyroxine 125 MCG tablet
125 mcg PO DAILY AT 0700
acetaminophen [Tylenol Extra Strength] 500 MG tablet
500 mg PO Q4HPRN PRN (Reason: pain)
cyanocobalamin (vitamin B-12) [Vitamin B-12] 1,000 mcg Tablet
1,000 mcg PO DAILY
cholecalciferol (vitamin D3) [Vitamin D3] 25 mcg (1,000 unit) Tablet
25 mcg PO DAILY
Entresto 49-51 mg Tablet
1 tab PO BID
spironolactone 25 mg Tablet
12.5 mg PO DAILY
omeprazole 40 mg Capsule,Delayed Release(Dr/Ec)
40 mg PO DAILY
Linzess 145 mcg Capsule
145 mcg PO DAILY
metoprolol succinate 25 mg Tablet Extended Release 24 Hr
25 mg PO HS
Discharge Orders:
Discharge Patient (As Directed); Ordered 12/05/23
Ordered By: Migue Horan
Discharge Date and Time
Discharge Date/Time: 12/05/23 12:01
== END 2023-12-05 12:01 | disposition home or self-care (01) | DRG 603 ==
LOC: 3 WEST ACU 06:38
PROVIDERS: ADMITTING PHYSICIAN Hospitalist; ATTENDING PHYSICIAN Hospitalist; EMERGENCY PHYSICIAN Emergency Medicine; FAMILY PHYSICIAN Family Medicine
DX: L03.115 Cellulitis of right lower limb (principal); I50.22 Chronic systolic (congestive) heart failure; L97.819 Non-pressure chronic ulcer of other part of right lower leg with unspecified severity; I87.8 Other specified disorders of veins; K22.70 Barrett's esophagus without dysplasia; I11.0 Hypertensive heart disease with heart failure; I35.0 Nonrheumatic aortic (valve) stenosis; E03.9 Hypothyroidism, unspecified; E66.09 Other obesity due to excess calories; K21.9 Gastro-esophageal reflux disease without esophagitis; I83.018 Varicose veins of right lower extremity with ulcer other part of lower leg; E87.5 Hyperkalemia; Z68.35 Body mass index [BMI] 35.0-35.9, adult
CPT/HCPCS: 80048; 80053; 83605; 83735; 84100; 85025; 85027; 87040; 87070; 87077; 87147; 87186; 87205; 93971; 96374; 96375; 97161; 99285

== ENCOUNTER → 2023-12-06 15:27 | Outpatient (REF) | payer OTHER, SELFPAY | LOC: WOUND 15:27 | PROVIDERS: ATTENDING PHYSICIAN Surgery; REFERRING PHYSICIAN Family Medicine | DX: I83.813 Varicose veins of bilateral lower extremities with pain (principal); L97.211 Non-pressure chronic ulcer of right calf limited to breakdown of skin; I83.013 Varicose veins of right lower extremity with ulcer of ankle | CPT/HCPCS: 99213 ==

== ENCOUNTER → 2023-12-12 14:04 | Outpatient (REF) | payer OTHER, SELFPAY | LOC: WOUND 14:04 | PROVIDERS: ATTENDING PHYSICIAN Surgery; FAMILY PHYSICIAN Family Medicine | DX: L97.211 Non-pressure chronic ulcer of right calf limited to breakdown of skin (principal); I83.813 Varicose veins of bilateral lower extremities with pain; I83.013 Varicose veins of right lower extremity with ulcer of ankle | CPT/HCPCS: 99213 ==

== ENCOUNTER → 2023-12-12 15:04 | Outpatient (REF) | payer OTHER, SELFPAY | LOC: WDC 15:04 | PROVIDERS: ATTENDING PHYSICIAN Obstetrics & Gynecology; FAMILY PHYSICIAN Family Medicine | DX: Z12.31 Encounter for screening mammogram for malignant neoplasm of breast (principal) | CPT/HCPCS: 77063; 77067 ==

== ENCOUNTER → 2023-12-20 14:18 | Outpatient (REF) | payer OTHER, SELFPAY | LOC: WOUND 14:18 | PROVIDERS: ATTENDING PHYSICIAN Surgery; FAMILY PHYSICIAN Family Medicine | DX: L97.211 Non-pressure chronic ulcer of right calf limited to breakdown of skin (principal); I83.813 Varicose veins of bilateral lower extremities with pain; I83.013 Varicose veins of right lower extremity with ulcer of ankle | CPT/HCPCS: 99213 ==

== ENCOUNTER → 2023-12-26 13:55 | Outpatient (REF) | payer OTHER, SELFPAY | LOC: WOUND 13:55 | PROVIDERS: ATTENDING PHYSICIAN Surgery; FAMILY PHYSICIAN Family Medicine | DX: I83.813 Varicose veins of bilateral lower extremities with pain (principal); L97.211 Non-pressure chronic ulcer of right calf limited to breakdown of skin; I83.013 Varicose veins of right lower extremity with ulcer of ankle | CPT/HCPCS: 99213 ==

== ENCOUNTER → 2024-01-02 14:19 | Outpatient (REF) | payer OTHER, SELFPAY | LOC: WOUND 14:19 | PROVIDERS: ATTENDING PHYSICIAN Surgery; FAMILY PHYSICIAN Family Medicine | DX: L03.115 Cellulitis of right lower limb (principal); L97.211 Non-pressure chronic ulcer of right calf limited to breakdown of skin; I83.813 Varicose veins of bilateral lower extremities with pain; I83.013 Varicose veins of right lower extremity with ulcer of ankle | CPT/HCPCS: 87070; 87071; 87075; 87076; 87186; 87205; 99213 ==

== ENCOUNTER → 2024-01-05 09:35 | Outpatient (REF) | payer OTHER, SELFPAY | LOC: HWEVLT 09:35 | PROVIDERS: ATTENDING PHYSICIAN Radiology Vascular & Interventional Radiology | DX: I83.891 Varicose veins of right lower extremity with other complications (principal) | CPT/HCPCS: 36478; C1769 ==

== ENCOUNTER → 2024-01-13 14:17 | Outpatient (REF) | payer OTHER, SELFPAY | LOC: WOUND 14:17 | PROVIDERS: ATTENDING PHYSICIAN Surgery; FAMILY PHYSICIAN Family Medicine | DX: I83.013 Varicose veins of right lower extremity with ulcer of ankle (principal); L97.211 Non-pressure chronic ulcer of right calf limited to breakdown of skin; I83.813 Varicose veins of bilateral lower extremities with pain; L03.115 Cellulitis of right lower limb | CPT/HCPCS: 99213 ==

== ENCOUNTER → 2024-01-19 09:42 | Outpatient (REF) | payer OTHER, SELFPAY | LOC: HWEVLT 09:42 | PROVIDERS: ATTENDING PHYSICIAN Radiology Vascular & Interventional Radiology | DX: I83.891 Varicose veins of right lower extremity with other complications (principal) | CPT/HCPCS: 36470; 93971 ==

== ENCOUNTER → 2024-01-23 14:42 | Outpatient (REF) | payer OTHER, SELFPAY | LOC: WOUND 14:42 | PROVIDERS: ATTENDING PHYSICIAN Surgery; FAMILY PHYSICIAN Family Medicine | DX: L97.211 Non-pressure chronic ulcer of right calf limited to breakdown of skin (principal); I83.813 Varicose veins of bilateral lower extremities with pain; I83.013 Varicose veins of right lower extremity with ulcer of ankle; L03.115 Cellulitis of right lower limb | CPT/HCPCS: 99213 ==

== ENCOUNTER 2024-02-06 13:53 | Emergency (ER) | payer OTHER, SELFPAY ==
[2024-02-06 14:02] VITALS: BP 147/82
--- NOTE | 2024-02-06 16:02 | ED.GENMED ---
History of Present Illness
General
Chief Complaint: DVT/Possible Blood Clot
Source: patient
Time Seen by Provider: 02/06/24 15:43
Travel History
Have you had any contact with someone who has COVID-19?: No
Do you have any symptoms of coronavirus? Fever > 100 degrees, chills, cough, shortness of breath, sore throat, loss of taste or smell, muscle aches, or headache?: No
History of Present Illness
History of Present Illness:
64-year-old female presents to the emergency room complaining of lumps in the right groin, right leg feels cooler at night. Patient had a venous procedure performed in December. This was performed due to a nonhealing wound in her leg. Procedure was
a saphenous vein ablation. Patient has noted lumps in her right groin. They are somewhat more uncomfortable at night. No fever or chills. No chest pain or shortness of breath.
Past History
Past History
ED Past Medical History: CHF (Hx SOB, followed by [facility]. Aortic stenosis), GERD, HTN, Hypercholesterolemia, Valvular disease (Moderate aortic stenosis), Hypothyroidism, Other (Bilateral lower extremity venous insufficiency with right lower
extremity venous ulcerations) and Other (Anemia requiring IV iron August/September 2023.)
ED Past Surgical History: Cholecystectomy and
Social History
Tobacco: Former smoker
Alcohol: Occasional
Drug: None
Personal:
Living: with family
Employment: Employed ([employer])
Family History
Family History: CAD and Cancer (sister w colon cancer)
Phy Exam
Physical Exam
Physical Exam:
General: Awake, Alert, Oriented X3. No acute distress.
Vitals: unremarkable
Head: Atraumatic
Eyes: Pupils equal, EOMI
Throat: Airway intact, no exudates
Neck: Trachea midline
Lungs: Clear and equal b/l
Heart: Regular rate, no murmurs
Abd: Soft, Nontender, No pulsatile mass
Neuro: Nonfocal
Skin: Warm, dry, no rash
Extremities: pulses equal b/l, no edema. Palpable lesions right groin which seem to be either a superficial vein that is thrombosed or lymphadenopathy. Minimally tender. There is no surrounding erythema. There is some swelling of the lower
extremity bilaterally.
Course
Orders/Labs/Results
Orders:
Orders
02/06/24 14:03
Venous Doppler Lwr Ext Rt [US Perip Venous LOWER Ext RT] Urgent
Comment: pt concerned about clot
Reason For Exam: 'lump' rt upper leg; had EVLT surgery 01/04;
Vital Signs
Initial and Last Documented VS:
Initial Vital Signs
Temp Pulse Resp BP Pulse Ox
98.1 F 67 18 147/82 98
02/06/24 14:02 02/06/24 14:02 02/06/24 14:02 02/06/24 14:02 02/06/24 14:02
Last Documented Vital Signs
Temp Pulse Resp BP Pulse Ox
98.1 F 58 16 140/84 100
02/06/24 14:02 02/06/24 17:28 02/06/24 17:28 02/06/24 17:28 02/06/24 17:28
MDM/Problems Addressed
Differential Diagnosis Includes:
dvt, superficial thrombophlebitis, post-surgical changes
MDM/Problems Addressed:
Ultrasound shows no deep vein thrombosis. Patient stable for discharge home. Follow-up as instructed by interventional radiology.
*Radiology
Radiology exam reviewed: radiology read reviewed
*Critical Care Note
Total Time (30-74mins, 75-104mins- exclusive of procedures): Not Applicable
ED Attending Note
-
Portions of this chart may have been created with voice recognition software.� Occasional wrong word or��sound alike� substitutions may have occurred due to the inherent limitations of voice recognition software.
Discharge Plan
Departure
Patient Disposition: Home (Routine Discharge)
Date of Disposition: 02/06/24
Time of Disposition: 16:45
Patient with high blood pressure during this ER visit?: Yes
Condition: Good
Discharge Problem:
Groin lump
Instructions: BLOOD PRESSURE
Prescriptions:
No Action
levothyroxine 125 MCG tablet
125 mcg PO DAILY AT 0700
acetaminophen [Tylenol Extra Strength] 500 MG tablet
500 mg PO Q4HPRN PRN (Reason: pain)
cyanocobalamin (vitamin B-12) [Vitamin B-12] 1,000 mcg Tablet
1,000 mcg PO DAILY
cholecalciferol (vitamin D3) [Vitamin D3] 25 mcg (1,000 unit) Tablet
25 mcg PO DAILY
Entresto 49-51 mg Tablet
1 tab PO BID
spironolactone 25 mg Tablet
12.5 mg PO DAILY
omeprazole 40 mg Capsule,Delayed Release(Dr/Ec)
40 mg PO DAILY
Linzess 145 mcg Capsule
145 mcg PO DAILY
metoprolol succinate 25 mg Tablet Extended Release 24 Hr
25 mg PO HS
furosemide 40 mg Tablet
40 mg PO DAILY Qty: 30 0RF
cephalexin 500 mg Capsule
500 mg PO QID 5 Days Qty: 20 0RF
Referrals:
Eriberto Ward MD [Family Provider] -
Activity Restrictions/Additional Instructions:
The u/s is normal. You do not have a deep vein clot. Continue to follow the post-operative instructions given by Dr. Granda.
Interventions
Interventions:
*Risk Screen - Suicide Last Done: 02/06/24 16:15
*General Assessment Last Done: 02/06/24 16:15
*Neglect/Abuse Screening Last Done: 02/06/24 16:15
ED- Fall Risk Assessment Last Done: 02/06/24 16:15
*ED COVID-19 Vaccine History Last Done: 02/06/24 16:15
*Nursing Disposition Last Done: 02/06/24 17:28
ED- Cardiac Assessment Last Done: 02/06/24 16:15
ED- Pulmonary Assessment Last Done: 02/06/24 16:15
ED-Peripheral Vascular Assessment Last Done: 02/06/24 16:15
ED-Skin Assessment Last Done: 02/06/24 16:15
Discharge Date and Time
Discharge Date/Time: 02/06/24 17:25
Print Language: LATVIAN
[2024-02-06 16:15] VITALS: BMI 35.7
[2024-02-06 16:49] VITALS: BP 144/78
--- NOTE | 2024-02-06 17:27 | EDRN ---
REviewed discharge instructions with patient. Verbalized understanding. Ambulated with steady gait to the lobby.
[2024-02-06 17:28] VITALS: BP 140/84
== END 2024-02-06 17:25 | disposition home or self-care (01) ==
LOC: EMR 13:53
PROVIDERS: EMERGENCY PHYSICIAN Emergency Medicine; FAMILY PHYSICIAN Family Medicine
DX: R19.03 Right lower quadrant abdominal swelling, mass and lump (principal); I11.0 Hypertensive heart disease with heart failure; I50.9 Heart failure, unspecified; I35.0 Nonrheumatic aortic (valve) stenosis; K21.9 Gastro-esophageal reflux disease without esophagitis; E78.00 Pure hypercholesterolemia, unspecified; E03.9 Hypothyroidism, unspecified; I87.2 Venous insufficiency (chronic) (peripheral); Z80.0 Family history of malignant neoplasm of digestive organs; Z82.49 Family history of ischemic heart disease and other diseases of the circulatory system; Z87.891 Personal history of nicotine dependence; Z90.49 Acquired absence of other specified parts of digestive tract
CPT/HCPCS: 99284; 93971

== ENCOUNTER 2024-06-04 15:40 | Emergency (ER) | payer OTHER, SELFPAY ==
[2024-06-04 15:45] VITALS: BP 149/92
[2024-06-04 16:44] LABS: % Basophils 0.7 % (0-2); % Eosinophils 2.3 % (0-6); % Immature Granulocytes 0.5 % (0-0.5); % Monocytes 7.9 % (1.7-9.3); % Neutrophils 72.6 % (42.2-75.2); Absolute Basophils 0.1 10^3/uL (0-0.2); Absolute Eosinophils 0.2 10^3/uL (0-0.7); Absolute Lymphocytes 1.4 10^3/uL (1.2-3.4); Absolute Monocytes 0.7 10^3/uL (0.1-0.6); Absolute Neutrophils 6.2 10^3/uL (1.4-6.5); Hematocrit 37.8 % (37.0-47.0); Hemoglobin 12.4 g/dL (12.0-16.0); Mean Corp Hgb Conc. 32.8 g/dL (33.0-37.0); Mean Corpuscular Hgb 32.8 pg (27.0-31.0); Nucleated Red Blood Cells % 0 %; Platelet Count 283 10^3/uL (130-400); Red Blood Cell Count 3.78 10^6/uL (4.20-5.40); Red Cell Dist. Width 11.9 % (11.5-14.5); White Blood Cell Count 8.6 10^3/uL (4.8-10.8)
[2024-06-04 17:08] LABS: ALT (SGPT) 21 U/L (0-35); AST (SGOT) 19 U/L (14-36); Albumin 3.8 g/dl (3.5-5.0); Alkaline Phosphatase 117 U/L (38-126); Blood Urea Nitrogen 17 mg/dl (7-17); Calcium 9.4 mg/dl (8.4-10.2); Carbon Dioxide 26 mmol/L (22-30); Chloride 105 mmol/L (98-107); Glucose 140 mg/dl (70-99); Sodium 139 mmol/L (135-145); Total Bilirubin 0.5 mg/dl (0.2-1.3); Total Protein 6.3 g/dl (6.3-8.2); eGFR > 60.00
[2024-06-04 17:13] LABS: NT-proBNP 464 pg/ml
--- NOTE | 2024-06-04 17:13 | ED.GENMED ---
History of Present Illness
General
Chief Complaint: Breathing Problem
Time Seen by Provider: 06/04/24 16:52
History of Present Illness
History of Present Illness:
64-year-old female with history of aortic stenosis and congestive heart failure presents to the emergency department for evaluation of generalized weakness and shortness of breath ongoing since being diagnosed with COVID-19 6 days ago. She is
concerned due to profound fatigue. Denies any chest pain at this time. Cough is generally nonproductive. No continued fevers
Past History
Past History
ED Past Medical History: CHF (Hx SOB, followed by [facility]. Aortic stenosis), GERD, HTN, Hypercholesterolemia, Valvular disease (Moderate aortic stenosis), Hypothyroidism, Other (Bilateral lower extremity venous insufficiency with right lower
extremity venous ulcerations) and Other (Anemia requiring IV iron September 2023.)
ED Past Surgical History: Cholecystectomy and
Social History
Tobacco: Former smoker
Alcohol: Occasional
Drug: None
Personal:
Living: with family
Employment: Employed ([employer])
Family History
Family History: CAD and Cancer (sister w colon cancer)
Review of Systems
Review of Systems
Allergies reviewed?: Yes
All Other Systems: ROS reviewed and negative except as documented in HPI and ROS
Phy Exam
Physical Exam
Physical Exam:
GEN: Well appearing, NAD, WDWN
Eyes: PERRLA, EOMs intact, no scleral icterus
HENT: NCAT, oral mucosa moist, no JVD, no cervical adenopathy.
Lungs: Normal respiratory effort, scant upper airway wheezes heard, no rales
Cardiac: Regular rate and rhythm, holosystolic murmur consistent with known aortic stenosis
Abdomen: S, NT, ND, NABS, no masses or hepatosplenomegaly
Neuro: AO x 3
MSK: No gross deformity or ecchymosis. No edema. No digital clubbing
Skin: No rashes, petechiae. Normal color, no pallor or jaundice.
Psych: Calm, cooperative, proper hygiene
Scores
Heart Failure Risk
Heart Failure Risk Score: Not Applicable
Course
Orders/Labs/Results
Orders:
Orders
06/04/24 15:49
Electrocardiogram (*1) Urgent
Reason for Study: Shortness of Breath
EKG- Treatment ONCE
06/04/24 16:12
BNP [NT-proBNP] Urgent
Complete Blood Count/With Diff Urgent
Comprehensive Metabolic Panel Urgent
06/04/24 17:36
CR Chest - 2 Views Urgent
Comment:
Reason For Exam: SOB
Abnormal Lab Results
06/04/24
16:12
RBC 3.78 L 10^6/uL
(4.20-5.40)
MCV 100.0 H fL
(81.0-99.0)
MCH 32.8 H pg
(27.0-31.0)
MCHC 32.8 L g/dL
(33.0-37.0)
Absolute Monos (auto) 0.7 H 10^3/uL
(0.1-0.6)
Lymphocytes % 16.0 L %
(20.5-51.1)
Glucose 140 H mg/dl
(70-99)
06/04/24 16:12
06/04/24 16:12
Vital Signs
Initial and Last Documented VS:
Initial Vital Signs
Temp Pulse Resp BP Pulse Ox
98.2 F 74 18 149/92 97
06/04/24 15:45 06/04/24 15:45 06/04/24 15:45 06/04/24 15:45 06/04/24 15:45
Last Documented Vital Signs
Temp Pulse Resp BP Pulse Ox
98.9 F 74 18 127/74 98
06/04/24 17:46 06/04/24 17:46 06/04/24 15:45 06/04/24 17:46 06/04/24 17:46
MDM/Problems Addressed
MDM/Problems Addressed:
Symptoms are likely due to fatigue from COVID-19. No evidence for pneumonia or acute congestive heart failure. Labs are reassuring. Educated the patient on supportive care and return parameters
Comment
Comment:
EKG independently interpreted by me shows normal sinus rhythm and rate of 76 with a left bundle branch block, QTc of 515
*Critical Care Note
Total Time (30-74mins, 75-104mins- exclusive of procedures): Not Applicable
ED Attending Note
-
Portions of this chart may have been created with voice recognition software.� Occasional wrong word or��sound alike� substitutions may have occurred due to the inherent limitations of voice recognition software.
Discharge Plan
Departure
Patient Disposition: Home (Routine Discharge)
Date of Disposition: 06/04/24
Time of Disposition: 18:20
Patient with high blood pressure during this ER visit?: No
Discharge Problem:
COVID-19
Instructions: COVID-19 ED
Prescriptions:
No Action
levothyroxine 125 MCG tablet
125 mcg PO DAILY AT 0700
acetaminophen [Tylenol Extra Strength] 500 MG tablet
500 mg PO Q4HPRN PRN (Reason: pain)
cyanocobalamin (vitamin B-12) [Vitamin B-12] 1,000 mcg Tablet
1,000 mcg PO DAILY
cholecalciferol (vitamin D3) [Vitamin D3] 25 mcg (1,000 unit) Tablet
25 mcg PO DAILY
Entresto 49-51 mg Tablet
1 tab PO BID
spironolactone 25 mg Tablet
12.5 mg PO DAILY
omeprazole 40 mg Capsule,Delayed Release(Dr/Ec)
40 mg PO DAILY
Linzess 145 mcg Capsule
145 mcg PO DAILY
metoprolol succinate 25 mg Tablet Extended Release 24 Hr
25 mg PO HS
furosemide 40 mg Tablet
40 mg PO DAILY Qty: 30 0RF
cephalexin 500 mg Capsule
500 mg PO QID 5 Days Qty: 20 0RF
Referrals:
Eriberto Ward MD [Family Provider] -
Activity Restrictions/Additional Instructions:
Drink plenty of fluids and get plenty of rest
Interventions
Interventions:
*Risk Screen - Suicide Last Done: 06/04/24 15:45
*General Assessment Last Done: 06/04/24 15:45
*Neglect/Abuse Screening Last Done: 06/04/24 15:45
ED- Fall Risk Assessment Last Done: 06/04/24 18:29
*ED COVID-19 Vaccine History Last Done: 06/04/24 15:45
*Nursing Disposition Last Done: 06/04/24 18:29
ED- Pulmonary Assessment Last Done: 06/04/24 18:29
Discharge Date and Time
Discharge Date/Time: 06/04/24 18:32
Print Language: LUX[place]
[2024-06-04 17:46] VITALS: BP 127/74
== END 2024-06-04 18:32 | disposition home or self-care (01) ==
LOC: EMR 15:40
PROVIDERS: Emergency Medicine; EMERGENCY PHYSICIAN Student in an Organized Health Care Education/Training Program; FAMILY PHYSICIAN Family Medicine
DX: U07.1 COVID-19 (principal); I44.7 Left bundle-branch block, unspecified; I35.0 Nonrheumatic aortic (valve) stenosis; I11.0 Hypertensive heart disease with heart failure; I50.9 Heart failure, unspecified; K21.9 Gastro-esophageal reflux disease without esophagitis; E03.9 Hypothyroidism, unspecified; E78.00 Pure hypercholesterolemia, unspecified; I87.2 Venous insufficiency (chronic) (peripheral); Z90.49 Acquired absence of other specified parts of digestive tract; Z87.891 Personal history of nicotine dependence
CPT/HCPCS: 99283; 71046; 80053; 83880; 85025; 93005

== ENCOUNTER → 2024-06-21 03:59 | Outpatient (REF) | payer OTHER, SELFPAY | LOC: RCS 03:59 | PROVIDERS: ATTENDING PHYSICIAN Nurse Practitioner Gerontology; FAMILY PHYSICIAN Family Medicine | DX: I35.0 Nonrheumatic aortic (valve) stenosis (principal) | CPT/HCPCS: 93306 ==

== ENCOUNTER → 2025-01-08 16:24 | Outpatient (REF) | payer OTHER, SELFPAY | LOC: WDC 16:24 | PROVIDERS: ATTENDING PHYSICIAN Obstetrics & Gynecology; FAMILY PHYSICIAN Family Medicine | DX: Z12.31 Encounter for screening mammogram for malignant neoplasm of breast (principal) | CPT/HCPCS: 77063; 77067 ==

== ENCOUNTER → 2025-01-22 16:25 | Outpatient (REF) | payer OTHER, SELFPAY | LOC: RAD 16:25 | PROVIDERS: ATTENDING PHYSICIAN Nurse Practitioner Primary Care; FAMILY PHYSICIAN Family Medicine | DX: I82.402 Acute embolism and thrombosis of unspecified deep veins of left lower extremity (principal) | CPT/HCPCS: 93971 ==

== ENCOUNTER 2025-03-08 06:17 | Day surgery (SDC) | payer OTHER, SELFPAY | END 2025-03-08 09:48 | disposition home or self-care (01) | LOC: GI 06:17 | PROVIDERS: ATTENDING PHYSICIAN Specialist | DX: K29.70 Gastritis, unspecified, without bleeding (principal); K29.50 Unspecified chronic gastritis without bleeding; K22.89 Other specified disease of esophagus; K44.9 Diaphragmatic hernia without obstruction or gangrene; K31.89 Other diseases of stomach and duodenum; R10.10 Upper abdominal pain, unspecified | CPT/HCPCS: 43239; 88305; 88342 ==

== ENCOUNTER → 2025-04-18 14:41 | Outpatient (REF) | payer OTHER, SELFPAY | LOC: RCS 14:41 | PROVIDERS: ATTENDING PHYSICIAN Nurse Practitioner; FAMILY PHYSICIAN Family Medicine | DX: I35.0 Nonrheumatic aortic (valve) stenosis (principal) | CPT/HCPCS: 93306 ==

== ENCOUNTER 2025-08-25 16:33 | Emergency (ER) | payer OTHER, SELFPAY ==
[2025-08-25 16:37] VITALS: BP 151/83
[2025-08-25 19:38] LABS: Hematocrit 39.3 % (37.0-47.0); Hemoglobin 12.3 g/dL (12.0-16.0); Mean Corp Hgb Conc. 31.3 g/dL (33.0-37.0); Mean Corpuscular Volume 100.8 fL (81.0-99.0); Nucleated Red Blood Cells % 0 %; Platelet Count 243 10^3/uL (130-400); Red Cell Dist. Width 12.5 % (11.5-14.5)
--- NOTE | 2025-08-25 19:42 | ED.SKININJ ---
HPI-Injury
General
Chief Complaint: Skin Problem
Source: patient
Exam Limitations: none
Time Seen by Provider: 08/25/25 19:04
Nursing documentation reviewed up to this point in time: agreed with
History of Present Illness-Injury
Initial Injury comments:
65-year-old female with history of A-fib, CHF, HTN, HLD, Juan's esophagus, GERD, Crohn's, anemia, hypothyroid, cholecystectomy, varicose vein strippings, numerous spider veins lower extremities, presents with concern for cellulitis of the left
lower leg due to red rash she noted several days ago.
Saw her PCP Dr. Ward 2 days ago and she thought he said she has cellulitis and was calling in a prescription for an antibiotic. Her pharmacy did not receive it.
She Googled cellulitis and read it could cause sepsis and she is afraid if she is supposed to be on antibiotics but isn't, she could get sepsis.
She denies fever/chills, denies pain in the leg, or swelling.
Past History
Past History
ED Past Medical History: CHF (Hx SOB, followed by [facility]. Aortic stenosis), GERD, HTN, Hypercholesterolemia, Valvular disease (Moderate aortic stenosis), Hypothyroidism, Other (Bilateral lower extremity venous insufficiency with right lower
extremity venous ulcerations) and Other (Anemia requiring IV iron August/September 2023.)
ED Past Surgical History: Cholecystectomy and
Social History
Tobacco: Former smoker
Alcohol: Occasional
Drug: None
Personal:
Living: with family
Employment: Employed ([employer])
Family History
Family History: CAD and Cancer (sister w colon cancer)
Review of Systems
Review of Systems
Allergies reviewed?: Yes
All Other Systems: ROS reviewed and negative except as documented in HPI and ROS
Phy Exam
Physical Exam
Physical Exam:
GENERAL: No acute distress. A&Ox3.
CONSTITUTIONAL: Afebrile.
EYES: clear, conjunctivae normal
ENMT: moist mucus membranes, Pharynx nl
RESPIRATORY: Regular respirations, nonlabored, lungs clear.
CARDIOVASCULAR: Regular rate and rhythm, no murmurs, no rubs.
GI: Soft, nontender, normal BS
MUSCULOSKELETAL: Moves with ease. Well perfused.
SKIN: Warm, dry, pink. nonblanching blotchy rash from the mid left lower leg to the ankle, no other areas of the body have this rash. The underlying skin is normal, there is no indication of cellulitis. Distal neurovascular intact. There is no
calf tenderness, warmth or swelling.
PSYCH: Normal mood and affect. Well kept, interactive and appropriate
NEUROLOGIC: Awake, alert and oriented. No focal neurological deficits
Course
Orders/Labs/Results
Orders:
Orders
08/25/25 19:32
Complete Blood Count/With Diff Urgent
Abnormal Lab Results
08/25/25
19:32
RBC 3.90 L 10^6/uL
(4.20-5.40)
MCV 100.8 H fL
(81.0-99.0)
MCH 31.5 H pg
(27.0-31.0)
MCHC 31.3 L g/dL
(33.0-37.0)
08/25/25 19:32
Vital Signs
Initial and Last Documented VS:
Initial Vital Signs
Temp Pulse Resp BP Pulse Ox
98.2 F 74 16 151/83 98
08/25/25 16:37 08/25/25 16:37 08/25/25 16:37 08/25/25 16:37 08/25/25 16:37
Last Documented Vital Signs
Temp Pulse Resp BP Pulse Ox
98.2 F 74 16 151/83 98
08/25/25 16:37 08/25/25 16:37 08/25/25 16:37 08/25/25 16:37 08/25/25 19:43
MDM/Problems Addressed
Differential Diagnosis Includes:
Cellulitis, thrombocytopenia, DVT
MDM/Problems Addressed:
65-year-old female with history of A-fib, CHF, HTN, HLD, Juan's esophagus, GERD, Crohn's, anemia, hypothyroid, cholecystectomy, varicose vein strippings, numerous spider veins lower extremities, presents with concern for cellulitis of the left
lower leg due to red rash she noted several days ago.
Saw her PCP Dr. Ward 2 days ago and she thought he said she has cellulitis and was calling in a prescription for an antibiotic. Her pharmacy did not receive it.
She Googled cellulitis and read it could cause sepsis and she is afraid if she is supposed to be on antibiotics but isn't, she could get sepsis.
She denies fever/chills, denies pain in the leg, or swelling.
There is a nonblanching blotchy rash from the mid left lower leg to the ankle, no other areas of the body have this rash. The underlying skin is normal, there is no indication of cellulitis. Distal neurovascular intact. There is no calf
tenderness. Patient is kindly refusing an ultrasound as she states she had one a month ago when she had an area on the lateral aspect of the lower leg that was bleeding from her superficial veins and was cauterized by net technical architect who ordered the
ultrasound which was negative.
When I told her I was going to do a CBC due to the nonblanching possible petechial rash, she then remembered that Dr. Ward gave her an outpatient prescription for CBC.
Her CBC shows nothing abnormal specifically platelets are normal
I reassured her that there is no indication of cellulitis and certainly no indication of sepsis
I instructed her to call Dr. Ward's office tomorrow to clarify the use or not of antibiotics
*Pulse Oximetry
SaO2: 98
Oxygen Mode of Delivery: Room air
Patient hypoxic: not evaluated
*Critical Care Note
Total Time (30-74mins, 75-104mins- exclusive of procedures): Not Applicable
ED Attending Note
-
Portions of this chart may have been created with voice recognition software.� Occasional wrong word or��sound alike� substitutions may have occurred due to the inherent limitations of voice recognition software.
Discharge Plan
Departure
Patient Disposition: Home (Routine Discharge)
Date of Disposition: 08/25/25
Time of Disposition: 20:03
Patient with high blood pressure during this ER visit?: No
Condition: Good
Discharge Problem:
Rash left lower leg
Prescriptions:
No Action
levothyroxine 125 MCG tablet
125 mcg PO DAILY AT 0700
acetaminophen [Tylenol Extra Strength] 500 MG tablet
500 mg PO Q4HPRN PRN (Reason: pain)
cyanocobalamin (vitamin B-12) [Vitamin B-12] 1,000 mcg Tablet
1,000 mcg PO DAILY
cholecalciferol (vitamin D3) [Vitamin D3] 25 mcg (1,000 unit) Tablet
25 mcg PO DAILY
Entresto 49-51 mg Tablet
1 tab PO BID
spironolactone 25 mg Tablet
12.5 mg PO DAILY
omeprazole 40 mg Capsule,Delayed Release(Dr/Ec)
40 mg PO DAILY
Linzess 145 mcg Capsule
145 mcg PO DAILY
metoprolol succinate 25 mg Tablet Extended Release 24 Hr
25 mg PO HS
furosemide 40 mg Tablet
40 mg PO DAILY Qty: 30 0RF
cephalexin 500 mg Capsule
500 mg PO QID 5 Days Qty: 20 0RF
Referrals:
Eriberto Ward MD [Family Provider, Family Practice] - Tomorrow
Activity Restrictions/Additional Instructions:
As we discussed, call Dr. Ward's office tomorrow to clarify whether or not he wants you to take an antibiotic.
Your CBC is normal, you do not have to repeat it at [facility]. I have provided you a copy of the results to give to your doctor, he also has access to it in your chart here
I see no sign of infection or cellulitis and I want to reassure you that you definitely do not have sepsis. Please clarify with Dr. Ward
Interventions
Interventions:
*Risk Screen - Suicide Last Done: 08/25/25 19:29
*General Assessment Last Done: 08/25/25 19:29
*Neglect/Abuse Screening Last Done: 08/25/25 19:29
*ED- Fall Risk Assessment Last Done: 08/25/25 19:29
*ED COVID-19 Vaccine History Last Done: 08/25/25 19:29
*ED Influenza Vaccine History Last Done: 08/25/25 19:29
*Nursing Disposition Last Done: 08/25/25 20:08
ED-Skin Assessment Last Done: 08/25/25 19:28
Discharge Date and Time
Discharge Date/Time: 08/25/25 20:09
Print Language: GUINEAN
== END 2025-08-25 20:09 | disposition home or self-care (01) ==
LOC: EMR 16:33
PROVIDERS: Registered Nurse; EMERGENCY PHYSICIAN Student in an Organized Health Care Education/Training Program; FAMILY PHYSICIAN Family Medicine
DX: R21 Rash and other nonspecific skin eruption (principal); I48.91 Unspecified atrial fibrillation; I11.0 Hypertensive heart disease with heart failure; I50.9 Heart failure, unspecified; E03.9 Hypothyroidism, unspecified; K50.90 Crohn's disease, unspecified, without complications; K22.70 Barrett's esophagus without dysplasia; K21.9 Gastro-esophageal reflux disease without esophagitis; D64.9 Anemia, unspecified; I35.0 Nonrheumatic aortic (valve) stenosis; R01.1 Cardiac murmur, unspecified; I87.2 Venous insufficiency (chronic) (peripheral); E78.00 Pure hypercholesterolemia, unspecified; Z87.891 Personal history of nicotine dependence; Z90.49 Acquired absence of other specified parts of digestive tract
CPT/HCPCS: 99283; 85025